=== PATIENT | male | born 1960 | race Caucasian/White ===

== ENCOUNTER 2016-10-02 14:31 | Emergency (ER) | payer OTHER ==
[~2016-10-02] VITALS: Ht 167.6 cm; Wt 73.5 kg
[2016-10-02 14:48] VITALS: Ht 167.6 cm; Wt 73.5 kg
--- NOTE | 2016-10-02 16:40 | RADRPT ---
PROCEDURE: Noncontrast CT Head. CLINICAL INDICATION: Trauma. Head injury. TECHNIQUE: Noncontrast CT of the head was obtained. The administered radiation dose was CTDI vol = 44.4 mGy, DLP = 630.2 mGy-cm. One or more of the following dose reduction techniques were used: Auto mated exposure control, Adjustment of the mA and/or kV according to patient size, or Use of iterativ e reconstruction technique. COMPARISON: There are no similar studies submitted for comparison. FINDINGS: The ventricles and sulci are within normal limits. There are mild vascular calcifications within the intracranial carotid arteries. There is no loss of abdullahi-white differentiation to suggest acute territorial infarction. There is no acute intracranial hemorrhage. There is no mass effect. No midline shift is identified. The orbits are within normal limits. The paranasal sinuses are well aerated. No destructive osseous lesion is identified. IMPRESSION: No acute intracranial hemorrhage. Further findings as detailed above. RPTAT: PP .Dick Givens MD, MD Date Time Electronically viewed and signed by .Dick Givens MD, on 10/02/2016 16:40 .F/
[2016-10-02] MEDS ORDERED: ACET325T33 PO (16:53)
[2016-10-02] MEDS ORDERED: ONDA4TAB14 PO (16:54)
--- NOTE | 2016-10-02 19:45 | ERD ---
ER Documentation Chief Complaint Date/Time DATE: 10/02/16 TIME: 19:36 Chief Complaint PT with MCDONALD, nausea, blurry vision, x 1week after ladder fell on head. HPI This is a 56-year-old male presenting to the emergency department complaining of headache, nausea, intermittent blurry vision for 1 week status post having a ladder hit his head 1 week ago. Patient states the headache come and go and he describes the headache as 6 out of 10 dull, global. Patient states that he was not sure if he lost consciousness but if he did it was less than a few seconds. Patient states that he did go to an urgent care and they gave him a Medrol Dosepak because he had a hematoma on top of his head. Patient states that they have told him he had a normal neurological exam. Patient went to his primary care physician and his primary care physician told him to go to the ER. Patient denies any lethargy, abnormal speech, abnormal gait. ROS All systems reviewed and are negative except as per history of present illness. Medications Home Meds Active Scripts Ondansetron (Ondansetron Odt) 4 Mg Tab.rapdis, 4 MG PO Q6H Y for NAUSEA AND/OR VOMITING, #10 TAB Prov:BUDDY ALCALA PA-C 10/02/16 Acetaminophen* (Tylenol*) 325 Mg Tablet, 2 TAB PO Q6 Y for PAIN AND OR ELEVATED TEMP, #30 TAB Prov:BUDDY ALCALA PA-C 10/02/16 PMhx/Soc Medical and Surgical Hx: pt denies Medical Hx, pt denies Surgical Hx Hx Alcohol Use: No Hx Substance Use: No Hx Tobacco Use: No Physical Exam Vitals Vital Signs Date Time Temp Pulse Resp B/P Pulse Ox O2 Delivery O2 Flow Rate FiO2 10/02/16 14:48 97.9 70 20 129/74 96 Physical Exam GENERAL: well-developed/well-nourished, in no apparent distress, non-toxic appearing HENT: NC/AT, bilateral tympanic membrane is normal with good cone of light, nares patent, oropharynx clear without exudates EYES: Conjunctiva normal, PERRLA, EOMI, no nystagmus noted NECK: Supple, no lymphadenopathy PULM: CTA bilaterally, no rales, rhonchi, or wheezing heard CV: Normal S1S2, RRR, good capillary refill GI: Soft, non-distended, normal bowel sounds, non-tender BACK: No midline tenderness, no masses, No CVAT EXT: No clubbing, cyanosis, or edema NEURO: Alert and orientated to person, place, and time. CN II-IIX intact. Gait and coordination were normal. Hand rn child strength were equal and within normal limits SKIN: Intact, normal turgor PSYCH: Normal mood and mentation, patient denied SI Procedures/MDM MDM: This is a 56-year-old male presenting to the emergency department with intermittent headache, nausea from a head injury that occurred a week prior to being seen. Patient states that a ladder and hit his head and he had a hematoma but that has resolved. Patient has been seen by an urgent care in her primary care physician. Differentials include but not limited to concussion, post-concussion headache, intracranial bleeding/hemorrhage, and skull fracture. However it is very unlikely due to physical examination. Ac patient had a normal neurological exam, he is speaking clearly his airways are intact. A CT of the head was done and did not show any evidence of acute intracranial pathology. I discussed the patient to continue to follow-up with his primary care physician to give neurologic referral. hemodynamically stable and neurovascularly intact to be discharged home. Strict precautions were given to return to the ER with any new signs or symptoms or if condition worsens. Patient understood and agreed plan Departure Diagnosis: Primary Impression: Head injury Condition: Stable Patient Instructions: What is Mild Traumatic Brain Injury (Concussion)?, After a Concussion, HEAD INJURY, No Wake-Up (Adult) Additional Instructions: FOLLOW UP WITH YOUR PRIMARY CARE PHYSICIAN TOMORROW.Return to this facility if you are not improving as expected. Take all medicines as directed. Return to this facility if you are not improving as expected. BUDDY ALCALA PA-C Oct 02, 2016 19:45
== END 2016-10-02 17:10 | disposition home or self-care (01) ==
LOC: FTE 14:31
DX: S09.90XA Unspecified injury of head, initial encounter (principal); R11.0 Nausea; R51 Headache; W20.8XXA Other cause of strike by thrown, projected or falling object, initial encounter; Y92.9 Unspecified place or not applicable
CPT/HCPCS: 70450; Z7502

== ENCOUNTER 2017-03-13 15:14 | Emergency (ER) | END 2017-03-13 22:03 | disposition home or self-care (01) ==

== ENCOUNTER 2017-04-27 05:45 | Day surgery (SDC) | END 2017-04-27 10:24 | disposition home or self-care (01) ==